=== PATIENT | male | born 1990 | race Caucasian/White ===

== ENCOUNTER 2019-08-12 10:06 | Emergency (ER) | payer OTHER ==
[~2019-08-12] VITALS: Ht 175.3 cm; Wt 74.8 kg
[2019-08-12] MEDS ORDERED: MAGNESIUM200 MG (10:18)
== END 2019-08-12 15:13 | disposition home or self-care (01) ==
LOC: ER 10:06
DX: K59.09 Other constipation (principal); R10.31 Right lower quadrant pain

== ENCOUNTER 2021-02-11 11:25 | Emergency (ER) | payer OTHER ==
[~2021-02-11] VITALS: Ht 177.8 cm; Wt 80.7 kg
[~2021-02-11 11:25] MED LIST: MAGNESIUM200 MG
== END 2021-02-11 13:15 | disposition home or self-care (01) ==
LOC: ER 11:25
DX: S00.93XA Contusion of unspecified part of head, initial encounter (principal); W22.8XXA Striking against or struck by other objects, initial encounter; Y92.89 Other specified places as the place of occurrence of the external cause